=== PATIENT | female | born 1975 | race Asian ===

== ENCOUNTER → 2016-09-05 | Outpatient (CLI) | payer OTHER | LOC: COL.RAD 07:30 | DX: D25.9 Leiomyoma of uterus, unspecified (principal); N84.0 Polyp of corpus uteri ==

== ENCOUNTER → 2018-03-19 | Outpatient (CLI) | payer OTHER | LOC: COL.RAD 11:49 | DX: N97.9 Female infertility, unspecified (principal); N84.0 Polyp of corpus uteri ==